=== PATIENT | female | born 1945 | race Two or more races ===

== ENCOUNTER 2018-01-01 19:58 | Inpatient (IN) | payer MEDICARE, BC ==
[~2018-01-01] VITALS: Ht 157.5 cm; Wt 78.0 kg
--- NOTE | 2018-01-01 22:30 | NUR ---
ADMISSION NOTES: ADMITTED A 72 YEARS OLD FEMALE. PATIENT FROM [facility]. PATIENT ADMITTED 5150 FOR DTS. PER HOLD PATIENT HAS BEEN REPORTING THAT THE MEDICATION ARE NOT WORKING AND HAS MADE SUICIDAL STATEMENTS ALMOST DAILY. LAST NIGHT SHE REPORTED "I WANT TO GO HOME TO KILL MYSELF." AND TODAY "IF I DO NOT OD, I WILL JUMP IN FRONT OF A CAR." SEVERAL PREVIOUS SUICIDAL ATTEMPTS. PATIENT WAS STORING MEDICATION AT HOME FOR OD ATTEMPT. UPON FACE TO FACE ASSESSMENT PATIENT ALERT ORIENTED X3, DISORGANIZED, SUSPICIOUS, PARANOID. DENIES SI/HI AT THIS TIME. V/S STABLE, NO SOB, RESPIRATION EVEN AND UNLABORED. NO COMPLAIN OF PAIN/DISCOMFORT AT THIS TIME. CHECK FOR CONTRABAND ITEMS. PUT IT IN SAFE CABINET. SKIN/BODY ASSESSMENT DONE. SKIN CLEAR AND INTACT. PATIENT WAS ORIENTED IN THE UNIT AND UNIT POLICIES. REFUSED TO SIGN CONSENT FORMS. MRSA DONE. ALL NEEDS ATTENDED AND ANTICIPATED. DR. VALDEZ FOR PSYCH AND DR. ROBERSON FOR MEDICAL WAS MADE AWARE OF THE ADMISSION. ALL NEEDS ATTENDED AND ANTICIPATED. WILL CONTINUE TO MONITOR FOR SAFETY AND BEHAVIOR [id number].
[2018-01-01 22:40] VITALS: BP 133/82
[2018-01-01] MEDS ORDERED: MAGNESIUM HYDROXIDE 30 ML UDC PO PRN (23:00)
[2018-01-01] MEDS ORDERED: MAG HYDROX/AL HYDROX/SIMETH 30 ML UDC PO PRN (23:00)
[2018-01-01] MEDS ORDERED: ACETAMINOPHEN 325 MG TABLET PO PRN (23:00)
[2018-01-01] MEDS ORDERED: LORAZEPAM 0.5 MG TABLET PO PRN (23:00)
[2018-01-01] MEDS ORDERED: TEMAZEPAM 7.5 MG CAPSULE PO PRN (23:00)
[2018-01-01 23:27] VITALS: BP 133/82
[2018-01-02] MEDS ORDERED: VALS40TA4 PO (00:07)
[2018-01-02] MEDS ORDERED: BUPR300T52 PO (00:07)
[2018-01-02] MEDS ORDERED: ROSU10TA PO (00:07)
[2018-01-02] MEDS ORDERED: OLAN10TA3 PO (00:07)
[2018-01-02] MEDS ORDERED: HYDR12.5 PO (00:07)
[2018-01-02] MEDS ORDERED: CITA20TA19 PO (00:07)
[2018-01-02] MEDS ORDERED: NICO-676 TD (00:07)
[2018-01-02] MEDS ORDERED: NICOTINE PATCH (14MG) 14 MG PATCH.TD24 TD SCH (01:00)
[2018-01-02 08:00] VITALS: BP 108/74
[2018-01-02 08:47] LABS: BASOPHILS % (AUTO) 0.4 % (0.0-2.0); EOSINOPHILS % (AUTO) 0.6 % (0.0-6.0); HEMATOCRIT 40 % (33-45); HEMOGLOBIN 13.8 g/dL (11.5-14.8); LYMPHOCYTES # (AUTO) 1.6 /CMM (0.8-4.8); LYMPHOCYTES % (AUTO) 32.4 % (20.0-44.0); MEAN CORPUSCULAR HEMOGLOBIN 33 PG (26.0-33.0); MEAN CORPUSCULAR HGB CONC 34 g/dl (31.0-36.0); MEAN CORPUSCULAR VOLUME 95 fL (82-100); MONOCYTES # (AUTO) 0.3 /CMM (0.1-1.30); MONOCYTES % (AUTO) 6.8 % (2.0-12.0); NEUTROPHILS # (AUTO) 2.9 /CMM (1.8-8.9); NEUTROPHILS % (AUTO) 59.8 % (43.0-81.0); PLATELET COUNT (AUTO) 231 /CMM (150-450); RDW COEFFICIENT OF VARIATION 13.4 (11.5-15.0); RED BLOOD CELL COUNT(AUTO) 4.24 MIL/uL (4.0-5.2); WHITE BLOOD COUNT (AUTO) 4.9 K/uL (4.3-11.0)
[2018-01-02] MEDS: ASPIRIN 81 MG TAB.CHEW PO SCH (09:07)
[2018-01-02] MEDS: HYDROCHLOROTHIAZIDE 25 MG TABLET PO SCH (09:07)
[2018-01-02 09:11] LABS: CALCIUM, SERUM 9.2 mg/dL (8.5-10.1); CREATININE 1.1 mg/dL (0.6-1.3); POTASSIUM 4.7 mmol/L (3.5-5.1)
[2018-01-02 09:23] LABS: ALBUMIN 3.6 g/dL (3.4-5.0); BILIRUBIN,TOTAL 0.3 mg/dL (0.2-1.0); TOTAL PROTEIN, SERUM 7.4 g/dL (6.4-8.2)
[2018-01-02 09:45] LABS: TRIGLYCERIDES 168 mg/dL (30-150)
[2018-01-02 09:46] LABS: CHOLESTEROL 197 mg/dL (<200); HDL CHOLESTEROL 66 mg/dL (40-60); LDL 105 mg/dL (0-99)
--- NOTE | 2018-01-02 12:41 | NUR ---
Initial Discharge Note: Pt resides at [address] [facility] [address] [place] [address] with her , Lucian Garvin . Pts phone # is . Upon discharge pt would like to return to her residence. SW called pts , Lucian who agreed that pt could return to their residence. In addition, pts agreed to pick pt up from the hospital. SW will follow up with pt and treatment team to ensure pt is safely and appropriately discharged.
[2018-01-02 16:00] VITALS: BP 118/94
[2018-01-02] MEDS: VALSARTAN 40 MG TABLET PO SCH (17:17)
--- NOTE | 2018-01-02 19:45 | NUR ---
RN INITIAL NOTES: PT IN BED, AWAKE, A/O X3, ON RA RESPIRATION EVEN AND UNLABORED, DENIES ANY PAIN OR DISCOMFORT, PT CLAIMED SHE WROTE SUICIDAL NOTES AND SENT IT TO HER PSYCHIATRIST THAT'S WHY SHE ENDED UP IN THE HOSPITAL, PT STATED SHE HAS INTERMITTENT PLAN OF JUMPING IN FRONT OF A CAR, BUT CLARIFIED THAT SHE DOESN'T WANT TO HURT HERSELF AT THIS TIME. SHE CLAIMED SHE HAS SUICIDAL ATTEMPTS IN THE PAST. PT IS COOPERATIVE, MEDICATION COMPLIANT, AMBULATORY, SKIN INTACT, AND ENCOURAGE PT TO DRINK FLUIDS HER BUN IS SLIGHTLY ELEVATED AND HAS LOW SODIUM. PT AGREE AND UNDERSTAND. DISCUSSED PLAN OF CARE, PT AGREE AND UNDERSTAND, WILL CONTINUE TO MONITOR PT [id number] FOR SAFETY AND ANY CHANGES IN BEHAVIOR
[2018-01-02 20:00] VITALS: BP 122/74
[2018-01-02 20:08] VITALS: BP 122/74
[2018-01-02] MEDS: ATORVASTATIN 10 MG TABLET PO SCH (21:18)
--- NOTE | 2018-01-02 21:18 | NUR ---
REFUSAL FOR LIPITOR: PT STATED SHE ONLY TAKES CRESTOR, AND LIPITOR GIVES HER MUSCLE SPASM SO SHE REFUSED TO TAKE THE LIPITOR MEDICATION
[2018-01-02] MEDS ORDERED: ARIPIPRAZOLE 5 MG TABLET PO SCH (22:00)
[2018-01-03 08:00] VITALS: BP 119/79
[2018-01-03] MEDS: ASPIRIN 81 MG TAB.CHEW PO SCH (09:39)
[2018-01-03] MEDS: CITALOPRAM HYDROBROMIDE 20 MG TABLET PO SCH (09:40)
[2018-01-03] MEDS: HYDROCHLOROTHIAZIDE 25 MG TABLET PO SCH (09:40)
[2018-01-03] MEDS: BUPROPION XL 150 MG TAB.ER.24 PO SCH (09:40)
[2018-01-03] MEDS ORDERED: ONDANSETRON 4 MG TAB.RAPDIS SL PRN (13:00)
[2018-01-03 15:58] VITALS: BP 141/73
[2018-01-03] MEDS: VALSARTAN 40 MG TABLET PO SCH (17:05)
[2018-01-03] MEDS: FAMOTIDINE (20 MG) 20 MG TABLET PO SCH (17:05)
[2018-01-03 20:00] VITALS: BP_SYST 118; BP_SYST 149; BP_DIAS 72
[2018-01-03] MEDS: ATORVASTATIN 10 MG TABLET PO SCH (21:41)
[2018-01-04 08:00] VITALS: BP 100/65
[2018-01-04] MEDS: FAMOTIDINE (20 MG) 20 MG TABLET PO SCH (08:18)
[2018-01-04] MEDS: CITALOPRAM HYDROBROMIDE 20 MG TABLET PO SCH (08:18)
[2018-01-04 08:19] VITALS: BP 100/65
[2018-01-04] MEDS: HYDROCHLOROTHIAZIDE 25 MG TABLET PO SCH (08:19)
[2018-01-04] MEDS: BUPROPION XL 150 MG TAB.ER.24 PO SCH (08:19)
[2018-01-04] MEDS: ASPIRIN 81 MG TAB.CHEW PO SCH (08:19)
--- NOTE | 2018-01-04 12:45 | NUR ---
GPS/ RN PT IS 72 YEARS OLD FEMALE DISCHARGE AMA GOING HOME WITH HER . PT IS ALERT AND ORIENTED X3-4, NO MEMORY IMPAIRMENT NOTED. PT DENIES SUICIDAL IDEATION AND HOMICIDAL IDEATION AT THIS TIME. PT ALSO DENIES AUDITORY HALLUCINATIONS. PT DOES NOT WANT TO BE COMPLAINT WITH TREATMENTS AND MEDICAL ADVICE. BELONGINGS RETURNED AND DOCUMENTED. SKIN INTACT. DR. HARPER AND LOPEZ MULLIGAN MADE AWARE. ALL COMPUTER AND PAPERWORK DOCUMENTATION COMPLETED. PT LEFT VIA PRIVATE CARE ACCOMPANIED BY
--- NOTE | 2018-01-06 12:41 | NUR ---
Discharge Note: Pt left against medical advice (AMA) with her , Lucian Garvin . The pt resides with her at [address] [facility] [address], [place] [address]. Pts phone number is . Pt has a psychiatrist by the name of Dr. Ronny Mahmood located at [address] [place] [address] [id number], [place] [address]; .
== END 2018-01-04 12:45 | disposition left against medical advice (07) | DRG 885 ==
LOC: GPS 21:56
PROVIDERS: ADMIT Psychiatry & Neurology Psychosomatic Medicine; ATTEND Psychiatry & Neurology Psychosomatic Medicine
DX: F31.9 Bipolar disorder, unspecified (principal); D68.59 Other primary thrombophilia; R45.851 Suicidal ideations; E78.5 Hyperlipidemia, unspecified; E66.01 Morbid (severe) obesity due to excess calories; I10 Essential (primary) hypertension; Z91.5 Personal history of self-harm; Z79.899 Other long term (current) drug therapy; Z68.31 Body mass index [BMI] 31.0-31.9, adult; F43.10 Post-traumatic stress disorder, unspecified; Z72.0 Tobacco use; K21.9 Gastro-esophageal reflux disease without esophagitis
CPT/HCPCS: 36415; 80053-TC; 80061-TC; 85025-TC; 87081-TC; Q0162